=== PATIENT | female | born 1940 | race Caucasian/White ===

== ENCOUNTER 2024-12-19 22:22 | Emergency (ER) | payer MEDICARE, OTHER, SELFPAY ==
[2024-12-19 22:25] VITALS: BP 170/90
[2024-12-19] MEDS: DILAUDID 0.5 MG IV (23:12)
[2024-12-19 23:23] VITALS: BP 153/79
[2024-12-19 23:24] VITALS: BMI 31.9
--- NOTE | 2024-12-19 23:33 | ED.MUSCINJ ---
HPI-Injury
General
Chief Complaint: Musculo-Skeletal Complaint
Source: patient
Exam Limitations: none
Time Seen by Provider: 12/19/24 23:13
Nursing documentation reviewed up to this point in time: agreed with
History of Present Illness-Injury
Initial Injury comments:
84-year-old female who presents with right shoulder pain. She tripped over a litter box landing on her right shoulder. She denies head injury or loss of consciousness. She complains of pain in the right shoulder with limited range of motion.
Past History
Past History
ED Past Medical History: Cancer (lymphoma), HTN and Hypothyroidism
Social History
Tobacco: Smoker
Alcohol: None
Drug: None
Personal:
Living: with family
Review of Systems
Review of Systems
Allergies reviewed?: Yes
All Other Systems: ROS reviewed and negative except as documented in HPI and ROS
Musculoskeletal: Reports joint pain, muscle pain and muscle stiffness
Psychiatric: Reports anxiety
Musculoskeletal Injury Exam
Musculoskeletal Injury Exam
Right Shoulder:
Pain with Movement?: Moderate
Tender to palpation?: Mild
Soft tissue swelling?: Mild
External deformity and angulation?: Moderate
Joint effusion?: None
Contusion?: None
Hematoma-local bleeding into tissue?: None
Strain- Sprain- Tear (Connective tissue injury)?: None
Crepitus with movement?: Yes
Malalignment/deformity?: Yes
Range of motion: Limited
Distal skin color and temperature: normal-warm & good color
Capillary Refill: normal
Phy Exam
General Physical Exam
General Presentation: well appearing and mild distress
General age: appears stated age
General Habitus: elderly
General Mental: alert
General Hydration: appears well hydrated
Cardiovascular Exam
Cardiovascular Exam: regular rate/rhythm
Pulmonary Exam
Pulmonary Exam: lungs clear and no respiratory distress
Neurological Exam
Neurological Exam: alert and oriented x3
Musculoskeletal Exam
Musculoskeletal Exam: full ROM and neck pain
Skin Exam
Skin Exam: normal color and warm/dry
Injury Course
Orders/Labs/Results
Orders:
Orders
12/19/24 22:23
CR Shoulder, Trauma - Right Urgent
Comment:
Reason For Exam: pain
Humerus, Right 2 Views [CR Humerus - Right Min 2 View*] Urgent
Comment:
Reason For Exam: pain
12/19/24 23:09
HYDROmorphone [Dilaudid] 0.5 mg .ROUTE .STK-MED ONE
12/19/24 23:11
HYDROmorphone [Dilaudid] 0.5 mg IV NOW STA
12/19/24 23:44
Propofol [Diprivan] 20 ml .ROUTE .STK-MED
12/20/24 00:00
CR Shoulder - Right 1 View Urgent
Reason For Exam: reduction R shoulder
Procedures
Moderate Sedation
ASA Risk Score: Class II
Chart and allergies reviewed: Yes
Consent for anesthesia obtained: Yes
Time out completed (validating right patient & procedure): Yes
Moderate Sedation Start Time(when first medication is given): 23:50
History of difficult intubation: No
Airway free of obstruction: Yes
Patient has a gag reflex: Yes
Patient is able to open mouth: Yes
Patient has no dentures: Yes
Patient has no loose teeth: Yes
Medication administered by Provider during Moderate Sedation: IV Propofol (mg)
Total dose administered: 75
Time drug administered: 23:50
Moderate Sedation Procedure End Time: 00:06
Joint/Fracture Reduction
Right Shoulder:
Indication for procedure:: Dislocation
Procedure completed by: Myself
Consent form signed: Yes
Anesthesia/sedation: Moderate sedation
Injury was: closed
Further treatement: needs re-check only
Post reduction exam: stable
Capillary Refill: normal
Normal distal neurovascular exam?: Yes
*Radiology
Radiology exam reviewed: preliminary read by ED provider
*Critical Care Note
Total Time (30-74mins, 75-104mins- exclusive of procedures): Not Applicable
ED Attending Note
-
Portions of this chart may have been created with voice recognition software.� Occasional wrong word or��sound alike� substitutions may have occurred due to the inherent limitations of voice recognition software.
Discharge Plan
Departure
Patient Disposition: Home (Routine Discharge)
Date of Disposition: 12/20/24
Time of Disposition: 00:23
Patient with high blood pressure during this ER visit?: No
Condition: Good
Discharge Problem:
Dislocated shoulder
Instructions: Shoulder Dislocation (DC), How to Use a Shoulder Sling, Using Cold for Pain, MODERATE SEDATION ADULT, BLOOD PRESSURE
Prescriptions:
No Action
levothyroxine 50 MCG tablet
50 mcg PO DAILY
amlodipine-benazepril 1 CAPSULE capsule
1 cap PO DAILY
furosemide 40 MG tablet
40 mg PO DAILY Qty: 30 1RF
magnesium oxide 400 MG tablet
400 mg PO DAILY Qty: 30 0RF
cephalexin 500 MG capsule
500 mg PO QID Qty: 28 0RF
Referrals:
Snehal Jain I., DO [Active] -
Activity Restrictions/Additional Instructions:
Thank You for choosing [facility].
It was a pleasure meeting you and taking part in your care. We hope for your continued healing and wellness.
Please read discharge instructions in their entirety. However, they are for general education and may not describe your exact diagnosis at discharge. Information on your ER visit and medical conditions were discussed with you along with appropriate
follow up information...
If indicated, please take your medications as instructed and indicated on discharge paperwork.
Please schedule a follow up appointment as directed. Call to schedule an appointment
Please return to the emergency department with ANY change in, persisting, or worsening of symptoms. If any of your symptoms do not improve, or persist, or become more severe within 6-12 hours, please return to the emergency department for further
care.
Please return to the emergency department if you develop a headache, neck pain/stiffness, fever greater than 100.4F, chest pain, shortness of breath, persistent nausea, vomiting, slurred speech, difficulty walking, numbness/tingling, weakness, signs
of infection or any other symptoms that are worrisome to you.
If you have any questions or concerns please do not hesitate to call the Hospital at or E-mail me directly at [email or web address]
Interventions
Interventions:
*Risk Screen - Suicide Last Done: 12/19/24 22:25
*General Assessment Last Done: 12/19/24 22:25
*Neglect/Abuse Screening Last Done: 12/19/24 22:25
*ED- Fall Risk Assessment Last Done: 12/19/24 22:50
*ED COVID-19 Vaccine History Last Done: 12/19/24 22:50
ED-Musculoskeletal Assessment Last Done: 12/19/24 22:50
Discharge Date and Time
Print Language: [id number]
[2024-12-19 23:46] VITALS: BP 127/87
[2024-12-19 23:50] VITALS: BP 167/73
[2024-12-19 23:55] VITALS: BP 144/73
[2024-12-20] VITALS (7 sets, daily range): BP systolic 130–144; BP diastolic 64–81
== END 2024-12-20 01:25 | disposition home or self-care (01) ==
LOC: EMR 22:22
PROVIDERS: EMERGENCY PHYSICIAN Student in an Organized Health Care Education/Training Program; FAMILY PHYSICIAN Family Medicine
DX: S43.014A Anterior dislocation of right humerus, initial encounter (principal); W18.09XA Striking against other object with subsequent fall, initial encounter; I10 Essential (primary) hypertension; E03.9 Hypothyroidism, unspecified; F17.200 Nicotine dependence, unspecified, uncomplicated
CPT/HCPCS: 23650; 99152; 99285; 96374; 73020; 73030; 73060

== ENCOUNTER → 2025-01-01 10:19 | Outpatient (REF) | payer MEDICARE, OTHER, SELFPAY | LOC: HWRAD 10:19 | PROVIDERS: ATTENDING PHYSICIAN Orthopaedic Surgery Hand Surgery; FAMILY PHYSICIAN Family Medicine | DX: M25.511 Pain in right shoulder (principal) | CPT/HCPCS: 73200 ==